=== PATIENT | female | born 1960 | race Caucasian/White ===

== ENCOUNTER 2018-03-22 18:50 | Inpatient (IN) | payer MEDICAID ==
[~2018-03-22] VITALS: Ht 152.4 cm; Wt 92.1 kg
[2018-03-22 18:59] VITALS: Ht 152.4 cm; Wt 92.1 kg
[2018-03-22 19:45] LABS: BASOPHIL % 0.6 % (0-2); PLATELET COUNT 205 x10^3mcL (130-400); RED CELL DISTRIBUTION WIDTH 14.3 % (11.5-14.5)
[2018-03-22 19:52] LABS: CALCIUM 8.6 mg/dL (8.5-10.1); CARBON DIOXIDE 31.2 mmol/L (21-32); CHLORIDE SERUM 105 mmol/L (98-107); GFR1 > 60 mL/min; GLUCOSE SERUM 142 mg/dL (74-106); POTASSIUM SERUM 3.5 mmol/L (3.5-5.1); SODIUM SERUM 142 mmol/L (136-145)
[2018-03-22 20:05] LABS: ALKALINE PHOSPHATASE 105 U/L (46-116); ALT/SGPT 15 U/L (14-59); AST/SGOT 14 U/L (15-37); BILIRUBIN TOTAL 0.14 mg/dL (0.20-1.00); FREE T4 1.06 ng/dL (0.76-1.46); LIPASE 217 IU/L (73-393); TOTAL PROTEIN, SERUM 7.5 g/dL (6.4-8.2)
[2018-03-22 20:06] LABS: ALBUMIN 3.3 g/dL (3.4-5.0)
[2018-03-22] MEDS ORDERED: AVAPRO300 MG PO ×2 (20:28→23:21)
[2018-03-22] MEDS ORDERED: MELOXICAM15 M1 PO ×2 (20:29→23:21)
[2018-03-22] MEDS ORDERED: HYDROCHLOROTH12.5 M2 (20:30)
[2018-03-22 20:36] LABS: UA SPECIFIC GRAVITY >=1.030 (1.005-1.035); microscopic required? YES; urine erythrocyte NEGATIVE (NEGATIVE)
[2018-03-22 21:39] LABS: AMPHETAMINE QUAL UR NONE DETECTED (See below)
[2018-03-22 21:40] LABS: CHOLESTEROL/HDL RATIO 3.7; PHOSPHOROUS 3.5 mg/dL (2.5-4.9)
[2018-03-22 22:43] VITALS: BP 141/57
[2018-03-22] MEDS ORDERED: HYDROCHLOROTH12.5 M2 PO (23:20)
[2018-03-23 03:15] VITALS: BP 132/72
[2018-03-23 05:27] VITALS: BP 142/75
[2018-03-23 06:32] LABS: BASOPHIL % 0.4 % (0-2); PLATELET COUNT 180 x10^3mcL (130-400); RED CELL DISTRIBUTION WIDTH 13.9 % (11.5-14.5)
[2018-03-23 06:47] LABS: CALCIUM 8.1 mg/dL (8.5-10.1); CARBON DIOXIDE 26.7 mmol/L (21-32); CHLORIDE SERUM 107 mmol/L (98-107); CREATININE SERUM 0.8 mg/dL (0.6-1.0); GFR1 > 60 mL/min; GLUCOSE SERUM 96 mg/dL (74-106); POTASSIUM SERUM 3.5 mmol/L (3.5-5.1); SODIUM SERUM 142 mmol/L (136-145)
[2018-03-23 12:40] VITALS: BP 135/65
[2018-03-23] MEDS ORDERED: CIPRO250 MG PO (15:06)
[2018-03-23 15:16] VITALS: BP 135/65
[2018-03-23 16:55] VITALS: BP 136/73
== END 2018-03-23 18:17 | disposition home or self-care (01) | DRG 203 ==
LOC: ED 18:50 → DU 21:04
PROVIDERS: Emergency Medicine; Family Medicine
DX: M94.0 Chondrocostal junction syndrome [Tietze] (principal); E44.1 Mild protein-calorie malnutrition; G90.9 Disorder of the autonomic nervous system, unspecified; N39.0 Urinary tract infection, site not specified; R73.03 Prediabetes; Z68.39 Body mass index [BMI] 39.0-39.9, adult; Z85.42 Personal history of malignant neoplasm of other parts of uterus
CPT/HCPCS: 83880; 84439; 85378; J0696; J7030; Q0092; Q9967

== ENCOUNTER 2018-11-26 00:17 | Inpatient (IN) | payer MEDICAID ==
[~2018-11-26] VITALS: Ht 154.9 cm; Wt 91.2 kg
[~2018-11-26 00:17] MED LIST: AVAPRO300 MG PO; CIPRO250 MG PO; HYDROCHLOROTH12.5 M2; HYDROCHLOROTH12.5 M2 PO; MELOXICAM15 M1 PO
[2018-11-26 00:21] VITALS: Ht 154.9 cm; Wt 91.2 kg
[2018-11-26 01:23] LABS: BASOPHIL % 0.5 % (0-2); PLATELET COUNT 204 x10^3mcL (130-400); RED CELL DISTRIBUTION WIDTH 12.9 % (11.5-14.5)
[2018-11-26 01:27] LABS: CALCIUM 8.2 mg/dL (8.5-10.1); CARBON DIOXIDE 31.1 mmol/L (21-32); CHLORIDE SERUM 102 mmol/L (98-107); CREATININE SERUM 0.9 mg/dL (0.6-1.0); GFR1 > 60 mL/min; GLUCOSE SERUM 130 mg/dL (74-106); POTASSIUM SERUM 3.1 mmol/L (3.5-5.1); SODIUM SERUM 141 mmol/L (136-145)
[2018-11-26 01:34] LABS: microscopic required? NO
[2018-11-26 01:35] LABS: ALBUMIN 3.2 g/dL (3.4-5.0); ALKALINE PHOSPHATASE 93 U/L (46-116); ALT/SGPT 27 U/L (14-59); AST/SGOT 15 U/L (15-37); BILIRUBIN TOTAL 0.35 mg/dL (0.20-1.00); TOTAL PROTEIN, SERUM 7.2 g/dL (6.4-8.2)
[2018-11-26 01:45] LABS: CK-MB 0.7 ng/mL (0-3.6)
[2018-11-26 02:08] LABS: urine erythrocyte NEGATIVE (NEGATIVE)
[2018-11-26 02:51] LABS: AMPHETAMINE QUAL UR NONE DETECTED (See below)
[2018-11-26 02:56] LABS: CHOLESTEROL/HDL RATIO 3.9; PHOSPHOROUS 3.6 mg/dL (2.5-4.9)
[2018-11-26 03:02] LABS: T3 TOTAL 1.31 ng/mL
[2018-11-26 03:04] LABS: FREE T4 1.09 ng/dL (0.76-1.46); FREE THYROXINE INDEX 2.8 ug/dL (1.4-4.5); T4(THYROXINE) 7.6 ug/dL (4.7-13.3)
[2018-11-26 03:20] VITALS: BP 122/75
[2018-11-26 05:31] VITALS: BP 117/65
[2018-11-26 13:28] VITALS: BP 128/57
[2018-11-26 16:26] VITALS: BP 125/69
[2018-11-26 18:40] VITALS: BP 125/69
== END 2018-11-26 19:42 | disposition home or self-care (01) | DRG 203 ==
LOC: ED 00:17 → DU 02:29
PROVIDERS: Emergency Medicine; ADMIT Internal Medicine
DX: M94.0 Chondrocostal junction syndrome [Tietze] (principal); E44.0 Moderate protein-calorie malnutrition; R73.03 Prediabetes; E87.6 Hypokalemia; I10 Essential (primary) hypertension; K21.9 Gastro-esophageal reflux disease without esophagitis; E78.5 Hyperlipidemia, unspecified; Z68.39 Body mass index [BMI] 39.0-39.9, adult; Z85.42 Personal history of malignant neoplasm of other parts of uterus
CPT/HCPCS: 84439; 87804; J1885; J7030; Q0092